=== PATIENT | male | born 1960 | race Caucasian/White ===

== ENCOUNTER → 2020-01-04 | Day surgery (SDC) | payer OTHER ==
[~2020-01-04] MED LIST: CHOL1LIQ MC; DIVA250T PO; IPRATRPIUM/ALBUTEROL 0.5/2.5MG 3 ML NEBU. NEB PRN; IV RINGERS SOLUTION,LACTATED 1,000 ML IV SCH; LEVO125T5 PO; LIDOCAINE 2% PF 5 ML VIAL. ONE; MIDAZOLAM HCL PF 2 MG/2 ML VIAL. IV ONE; ONDANSETRON PF 4 MG/2 ML VIAL. IV PRN; PROPOFOL 10,000 MCG/ML (20ML) VIAL IV ONE; SERT100T PO
[2020-01-04 12:02] VITALS: BP 107/70
--- NOTE | 2020-01-06 15:13 | PATHOLOGY ---
[facility] Accession Number: [id number] . 01 Material submitted: . PART A: stomach - GASTRIC GASTRITIS PART B: esophagus - DISTAL ESOPHAGUS/GERD. Modifiers: distal PART C: cecum - CECAL POLYP PART D: rectum - RECTUM POLYP . 02 Diagnosis: A. Gastric biopsies: - Chronic gastritis, mild. . B. Esophageal biopsies, distal esophagus: - Reflux esophagitis. . C. Colon biopsy, cecal polyp: - Sessile serrated polyp/adenoma with submucosal fatty infiltration. . D. Colorectal biopsy, rectal polyp: - Hyperplastic polyp. (JPM:xochilt; 01/06/2020) S 01/06/2020 0921 Local . 02 Comment: Sections of the gastric biopsy reveal segments of gastric antral and antral/fundic transition mucosa showing congestion and mild chronic inflammation. A properly controlled immunoperoxidase stain for Helicobacter is negative for Helicobacter organisms. . Sections of the distal esophageal biopsy reveal segments of chronically inflamed hyperplastic squamous esophageal mucosa consistent with reflux esophagitis. There is no evidence of Raphael's change, dysplasia, or malignancy. . Sections of the cecal polyp biopsy reveal a sessile serrated polyp/adenoma with underlying submucosal fatty infiltration. There is no high-grade dysplasia or evidence of malignancy. . Sections of the rectal polyp biopsy reveal a hyperplastic polyp. There are no adenomatous changes or evidence of malignancy. (JPM:xochilt; 01/06/2020) . Special stain performed: Immunoperoxidase stain for Helicobacter on A1 . 02 Electronically signed: . Jony Pena MD, Pathologist NPI- [id number] . 01 Gross description: . A. The specimen is received in formalin, labeled "[place], gastric biopsy". Received are two segments of pale potter soft tissue ranging in size from 0.4 to 0.5 cm in maximum dimensions. The specimen is submitted entirely in cassette A1. . B. The specimen is received in formalin, labeled "[place], distal esophagus". Received are three segments of pale potter soft tissue measuring 0.3 cm each in maximum dimensions. The specimen is submitted entirely in cassette B1. . C. The specimen is received in formalin, labeled "[place], cecal polyp". Received is a segment of light brown soft tissue measuring 1.4 x 1.1 x 0.8 cm in greatest dimensions. The surgical margin is inked. The specimen is quadrisected and entirely submitted in cassettes C1 and C2. . D. The specimen is received in formalin, labeled "[place], rectal polyp". Received is a segment of pale potter soft tissue measuring 0.4 cm in maximum dimensions. The specimen is submitted entirely in cassette D1. (CAA; 01/05/2020) QAC/QAC 01/05/2020 1415 Local . 02 Pathologist provided ICD-10: K29.50, K21.00, D12.0, K62.1 . 02 CPT . 816383, 561564, 349608, 586052, [id number] Specimen Comment: A courtesy copy of this report has been sent to [phone], [phone] Specimen Comment: [id number] Specimen Comment: Report sent to / DR BRYAN Performed at: 01 [facility] [address] [facility] [address], [place] [id number] MD Domingo Garcia MD Phone: [phone] Performed at: 02 [facility] [address], [place] [id number] MD Jony Pena MD Phone: [phone]
== END | disposition home or self-care (01) ==
LOC: SURG 09:23
PROVIDERS: ATTEND Emergency Medicine
DX: Z12.11 Encounter for screening for malignant neoplasm of colon (principal); K21.00 Gastro-esophageal reflux disease with esophagitis, without bleeding; K63.5 Polyp of colon; K62.1 Rectal polyp; K29.50 Unspecified chronic gastritis without bleeding; K63.89 Other specified diseases of intestine
CPT/HCPCS: 43239; 45380; 45385; 88305; 88342; J2001; J2704; J7120